=== PATIENT | female | born 1995 | race Caucasian/White ===

== ENCOUNTER 2017-05-06 14:31 | Emergency (ER) | payer OTHER ==
[2017-05-06 14:45] VITALS: RESP 18; TEMP 98.2
--- NOTE | 2017-05-06 15:37 | EDPHY ---
H & P Time Seen by Provider: 05/06/17 15:22 HPI/ROS: CHIEF COMPLAINT: Headache, expressive aphasia HISTORY OF PRESENT ILLNESS: 21-year-old female presents with a headache. She was driving in a car yesterday when she developed squiggly lines in her right eye. This was followed by a moderate headache on the left side, throbbing. Later she developed difficulty speaking and had garbled speech. Associated with nausea. She took a nap and when she woke up, the neurologic symptoms had resolved. However she continued to have a moderate left-sided headache, which eventually resolved. She feels back to her baseline today. She has a history of headaches, but no prior migraine headaches or neurologic symptoms. She is especially concerned, because her sister had similar symptoms and was diagnosed with a TIA. No recent chiropractic manipulation, head or neck injury. Last menstrual period now. REVIEW OF SYSTEMS: Constitutional: No fever, no recent illness Eyes: No visual changes ENT: No sore throat Respiratory: No cough, no shortness of breath Cardiac: No chest pain Gastrointestinal: no vomiting, no abdominal pain Genitourinary: no dysuria Musculoskeletal: No leg pain or swelling Skin: No rash Neurological: no weakness Psychiatric: No depression Past Medical/Surgical History: Denies Social History: No recent alcohol No drug use Smoking Status: Never smoked Physical Exam: General Appearance: Alert, pleasant Eyes: Pupils equal and round, no conjunctival pallor or injection ENT, Mouth: Mucous membranes moist Neck: Normal inspection Respiratory: Lungs are clear to auscultation Cardiovascular: Regular rate and rhythm Gastrointestinal: Abdomen is soft and nontender Neurological: Alert, oriented x3, cranial nerves II through XII intact, motor 5 /5, sensory intact to light touch, normal gait Skin: Warm and dry, no rash Extremities: Normal inspection Psychiatric: Mood and affect normal Constitutional: Initial Vital Signs Temperature (C) 36.8 C 05/06/17 14:42 Heart Rate 91 05/06/17 14:42 Respiratory Rate 18 05/06/17 14:42 Blood Pressure 143/81 H 05/06/17 14:42 O2 Sat (%) 98 05/06/17 14:42 O2 Delivery Mode Room Air Allergies/Adverse Reactions: No Known Allergies Allergy (Unverified 05/06/17 14:45) Home Medications: Medication Instructions Recorded NK [No Known Home Meds] 05/06/17 Medical Decision Making - Diagnostics Imaging Results: Brain MRI 05/06/17 15:34 Impression: Normal MRI of the brain without contrast. Results called and discussed with Dr. Divine Verdugo at 05/06/2017 16:57. ED Course/Re-evaluation: Clinical presentation most consistent with migraine headache with neurologic features. Given that this is new onset of neurologic symptoms, MRI of the brain ordered to r/o CVA/TIA, MS other intracranial etiology. MRI of the brain is normal. Results discussed with the patient. She remains asymptomatic. Neuro exam intact. She will follow up with a neurologist. Differential Diagnosis: Headache including but not limited to subarachnoid hemorrhage, migraine headache , tension headache and infectious causes such as meningitis, pharyngitis and sinusitis. - Data Points Laboratory Results: Laboratory Results 05/06/17 15:56 05/06/17 15:56 Departure - Departure Disposition: Home, Routine, Self-Care Clinical Impression: Migraine headache with aura Qualifiers: Status migrainosus presence: without status migrainosus Intractability: not intractable Qualified Code(s): G43.109 - Migraine with aura, not intractable, without status migrainosus Condition: Good Instructions: Migraine Headache (ED) Additional Instructions: If you develop a recurrent migraine headache, take ibuprofen 600 mg orally. Return for any concerns, including worsening headache, recurrent symptoms. Referrals: Peter Mitchell DO [Doctor of Osteopathy] - As per Instructions (Call to make an appointment.)
[2017-05-06 16:08] LABS: PLATELET COUNT 275 10^3/uL (150-400)
[2017-05-06 17:30] VITALS: BP 101/71; PULSE 63; O2SAT 100
== END 2017-05-06 17:36 | disposition home or self-care (01) ==
DX: G43.109 Migraine with aura, not intractable, without status migrainosus (principal)